=== PATIENT | male | born 1985 | race Two or more races ===

== ENCOUNTER → 2017-03-31 | Emergency (ER) | payer OTHER ==
[~2017-03-31] VITALS: Ht 180.3 cm; Wt 88.9 kg
[~2017-03-31] MED LIST: ACIDOPHILUS1 EAC3 PO; AUGMENTIN PO; CORTISPORIN EAR10 M1 OT; IBUPROFEN800 MG PO
== END | disposition home or self-care (01) ==
LOC: ER 01:06
DX: H66.91 Otitis media, unspecified, right ear (principal)

== ENCOUNTER 2019-09-11 14:43 | Emergency (ER) | payer OTHER ==
[~2019-09-11] VITALS: Ht 180.3 cm; Wt 93.0 kg
== END 2019-09-11 17:19 | disposition home or self-care (01) ==
LOC: ER 14:43
DX: J35.01 Chronic tonsillitis (principal)

== ENCOUNTER 2020-12-10 21:32 | Emergency (ER) | payer OTHER ==
[~2020-12-10] VITALS: Ht 180.3 cm; Wt 88.5 kg
== END 2020-12-10 22:37 | disposition home or self-care (01) ==
LOC: ER 21:32
DX: L03.012 Cellulitis of left finger (principal); M79.89 Other specified soft tissue disorders

== ENCOUNTER → 2020-12-12 | Emergency (ER) | payer OTHER ==
[~2020-12-12] MED LIST changes: +ACETAMINOPHEN650 M2 PO; +BACTRIM DS TAB1 EACH PO; +CEPHALEXIN500 M1 PO
== END | disposition left against medical advice (07) ==
LOC: ER 20:10
DX: Z53.20 Procedure and treatment not carried out because of patient's decision for unspecified reasons (principal)

== ENCOUNTER 2020-12-14 14:06 | Emergency (ER) | payer OTHER ==
[~2020-12-14] VITALS: Ht 180.3 cm; Wt 88.9 kg
[~2020-12-14 14:06] MED LIST changes: -ACETAMINOPHEN650 M2 PO; -BACTRIM DS TAB1 EACH PO; -CEPHALEXIN500 M1 PO
[2020-12-14] MEDS ORDERED: CEPHALEXIN500 M1 PO (19:44)
[2020-12-14] MEDS ORDERED: BACTRIM DS TAB1 EACH PO (19:44)
[2020-12-14] MEDS ORDERED: ACETAMINOPHEN650 M2 PO (19:46)
== END 2020-12-14 19:58 | disposition home or self-care (01) ==
LOC: ER 14:06
DX: L02.512 Cutaneous abscess of left hand (principal); B37.89 Other sites of candidiasis

== ENCOUNTER → 2021-08-26 | Emergency (ER) | payer OTHER ==
[~2021-08-26] VITALS: Ht 180.3 cm; Wt 88.5 kg
[~2021-08-26] MED LIST changes: +ACETAMINOPHEN650 M2 PO; +BACTRIM DS TAB1 EACH PO; +CEPHALEXIN500 M1 PO
== END | disposition home or self-care (01) ==
LOC: ER 16:45
DX: K52.9 Noninfective gastroenteritis and colitis, unspecified (principal)

== ENCOUNTER 2023-11-28 08:41 | Emergency (ER) | payer OTHER ==
[~2023-11-28] VITALS: Ht 180.3 cm; Wt 88.9 kg
[2023-11-28 08:54] VITALS: BP 109/51; O2SAT 96
[2023-11-28] MEDS ORDERED: KETOROLAC TROMETHAMINE 60 MG VIAL IM ONE (09:45)
== END 2023-11-28 11:09 | disposition home or self-care (01) ==
LOC: ER 08:43
DX: M54.9 Dorsalgia, unspecified (principal)

== ENCOUNTER 2024-02-24 11:23 | Inpatient (IN) | payer OTHER ==
[~2024-02-24] VITALS: Ht 180.3 cm; Wt 89.8 kg
--- NOTE | 2024-02-24 11:45 | NUR ---
PACIENTE MASCULINO ALERTA Y ORIENTADO X3, REFIERE QUE EL DAWSON DE HOY LE COMENZO DOLOR ABDOMINAL ABE Y JULIAN.
[2024-02-24] MEDS ORDERED: ONDANSETRON HCL 2 MG/ML VIAL IV ONE (12:30)
[2024-02-24] MEDS ORDERED: 0.9 % SODIUM CHLORIDE 1,000 ML IV ONE (12:30)
[2024-02-24] MEDS ORDERED: FAMOtidine 10 MG/ML (4ML VIAL) IV ONE (12:30)
[2024-02-24] MEDS ORDERED: KETOROLAC TROMETHAMINE 60 MG VIAL IM ONE ×2 (12:30→14:04)
[2024-02-24] MEDS ORDERED: FAMOTIDINE/PF 20 MG/2 ML VIAL ONE (14:04)
[2024-02-24] MEDS ORDERED: ONDANSETRON HCL 2 MG/ML VIAL ONE (14:04)
--- NOTE | 2024-02-24 14:32 | NUR ---
PTE ALERTA Y ORIENTADO X3. SE EDUCA A PTE SOBRE TRATAMIENTO MEDICO Y MAX DE MUESTRAS ORDENADAS POR MD, PTE REFIERE ENTENDER. SE REALIZAN DONNY DE MUESTRAS Y TRATAMIENTO MEDICO ORDENADAS POR MD. SE REALIZA EKG
[2024-02-24 15:03] LABS: PH,URINE 6.5 (5.0-8.0); URINE APPEARANCE Clear; URINE BILIRRUBIN Negative (NEGATIVE); URINE BLOOD Negative; URINE COLOR Yellow; URINE GLUCOSE Negative (NEGATIVE); URINE LEUKOCYTE Negative; URINE NITRATE Negative; URINE PROTEIN Trace (NEGATIVE); URINE UROBILINOGEN 0.2 E.U./dl
[2024-02-24 15:08] LABS: URINE BACTERIA 20.8 uL (0.0-1933); URINE EPITHELIAL CELLS 8.3 uL (0.0-38.8); URINE WBC 16.6 uL (0.0-23.2)
[2024-02-24 15:31] LABS: URINE CAST 0.29 uL (0.0-1.40); URINE KETONE 40 (NEGATIVE)
[2024-02-24 15:37] LABS: HEMATOCRIT 42.1 % (39.0-48.0); HEMOGLOBIN 13.9 g/dL (13-16.00); MEAN CELL VOLUME 81.1 fL (80.0-100.00); MEAN CORPUSCULAR HEMOGLOBIN 26.7 pg (27.00-32.0); MEAN CORPUSCULAR HGB CONC 32.9 g/dl (32.0-36.0); PLATELET COUNT 259 K/uL (150-450); RED BLOOD COUNT 5.19 M/uL (4.00-6.00); RED CELL DISTRIBUTION WIDTH 14.2 % (11.5-14.5)
[2024-02-24 16:03] LABS: ALBUMIN 4.3 gm/dL (3.4-5.0); BILIRUBIN TOTAL 0.67 mg/dL (0.3-1.2); CALCIUM 9.6 mg/dL (8.5-10.1); CREATININE SERUM 0.92 mg/dL (0.70-1.30); GFR 92.07; GLOBULINA 3.6 G/DL (2.4-3.5); POTASSIUM 4.82 mEq/L (3.5-5.1); TOTAL PROTEIN 7.9 gm/dL (6.4-8.2)
[2024-02-24 16:20] LABS: INR 1.03; PARTIAL THROMBOPLASTIN TIME 27.6 SECONDS (22.0-34.0); PROTHROMBIN TIME 11.2 SECONDS (9.0-11.5)
[2024-02-24] MEDS ORDERED: 0.9 % SODIUM CHLORIDE 1,000 ML IV SCH ×2 (17:15→19:15)
[2024-02-24] MEDS ORDERED: PIPERACILLIN/TAZOBACTAM SODIUM 3.375 GM VIAL IV ONE (17:15)
[2024-02-24] MEDS ORDERED: MORPHINE SULFATE 4 MG/ML CARTRIDGE IV PRN (19:30)
[2024-02-24] MEDS ORDERED: MORPHINE SULFATE 4 MG/ML CARTRIDGE IV ONE (19:30)
[2024-02-24] MEDS ORDERED: ACETAMINOPHEN 500 MG GEL..CAP PO PRN (19:30)
[2024-02-24] MEDS ORDERED: ONDANSETRON HCL 4 MG in 0.9 % SODIUM CHLORIDE 50 ML IV PRN (19:30)
[2024-02-24 22:03] LABS: INR 1.04; PARTIAL THROMBOPLASTIN TIME 27.4 SECONDS (22.0-34.0); PROTHROMBIN TIME 11.3 SECONDS (9.0-11.5)
[2024-02-24 22:36] VITALS: BP 120/72; O2SAT 98
[2024-02-25] MEDS ORDERED: PIPERACILLIN/TAZOBACTAM SODIUM 3.375 GM in DEXTROSE 5 % IN WATER 100 ML IV SCH
[2024-02-25 01:02] VITALS: BP 103/62; O2SAT 99
[2024-02-25] MEDS ORDERED: FAMOTIDINE/PF 20 MG in 0.9 % SODIUM CHLORIDE 8 ML IV PUSH SCH (09:00)
[2024-02-25 10:04] VITALS: BP 110/66; O2SAT 99
[2024-02-25] MEDS ORDERED: AMOX-CLAV 875-1 EACH PO ×2 (15:41→15:43)
[2024-02-25 17:28] VITALS: BP 120/80; O2SAT 98
== END 2024-02-25 17:38 | disposition home or self-care (01) | DRG 392 ==
LOC: ER 11:25 → MEDJ 20:27
PROVIDERS: General Practice; ADMIT Student in an Organized Health Care Education/Training Program; ATTEND Student in an Organized Health Care Education/Training Program
PROC: BW21YZZ Computerized Tomography (CT Scan) of Abdomen and Pelvis using Other Contrast (ICD-10-PCS; principal; 2024-02-24)
DX: K52.9 Noninfective gastroenteritis and colitis, unspecified (principal); Z20.822 Contact with and (suspected) exposure to COVID-19